=== PATIENT | female | born 1960 | race Caucasian/White ===

== ENCOUNTER 2020-02-10 12:21 | Emergency (ER) | payer MEDICAID ==
[~2020-02-10] VITALS: Ht 162.6 cm; Wt 59.1 kg
[2020-02-10] MEDS ORDERED: ondansetron/PF 4mg/2ml inj IV ONE (12:35)
[2020-02-10] MEDS ORDERED: normal saline 1000ML IV soln IV ONE (12:35)
[2020-02-10 13:13] LABS: EOSINOPHILS % (AUTO) 0.9 % (0-6); HEMATOCRIT 33.5 % (35.0-45.0); HEMOGLOBIN 11.2 g/dl (12.0-16.0); LYMPHOCYTES % (AUTO) 24.4 % (21-51); MEAN CORPUSCULAR HEMOGLOBIN 32.4 PG (27.0-31.0); MEAN CORPUSCULAR HGB CONC 33.4 g/dL (33.0-36.5); MEAN PLATELET VOLUME 8.6 FL (7.4-10.4); MONOCYTES # (AUTO) 0.5 X10'3 (0-0.9); MONOCYTES % (AUTO) 13.9 % (2-12); NEUTROPHILS # (AUTO) 2.3 X10'3 (1.8-7.7); NEUTROPHILS % (AUTO) 59.8 % (42-75); RED BLOOD COUNT 3.46 X10'6 (4.20-5.60); RED CELL DISTRIBUTION WIDTH 14.7 % (11.5-14.5); WHITE BLOOD COUNT 3.9 X10'3 (4.5-11.0)
[2020-02-10 13:26] LABS: PLATELET COUNT 30 X10'3 (140-440)
[2020-02-10 13:32] LABS: ALANINE AMINOTRANSFERASE 48 U/L (12-78); ALBUMIN 3.4 G/DL (3.4-5.0); ALBUMIN/GLOBULIN RATIO 0.7 (1.1-1.5); ALKALINE PHOSPHATASE 189 IU/L (46-116); ANION GAP 15 (8-16); ASPARTATE AMINO TRANSFERASE 161 U/L (10-37); BILIRUBIN,TOTAL 2.2 MG/DL (0.1-1.0); BLOOD UREA NITROGEN 10 MG/DL (7-18); BUN/CREATININE RATIO 14.5 (6.6-38.0); CALCIUM 8.6 MG/DL (8.5-10.1); CHLORIDE 95 MMOL/L (99-107); CREATININE 0.69 MG/DL (0.40-0.90); GLUCOSE 113 MG/DL (70-104); LIPASE 257 U/L (73-393); SODIUM 134 MMOL/L (135-145); TOTAL CARBON DIOXIDE 24.1 MMOL/L (24-32); TOTAL PROTEIN 8.1 G/DL (6.4-8.2); eGFR 87 ML/MIN
[2020-02-10 13:39] LABS: POTASSIUM 2.7 MMOL/L (3.5-5.1)
[2020-02-10] MEDS ORDERED: potassium Cl 20 mEq SR tablet PO STA (13:52)
[2020-02-10] MEDS ORDERED: potassium Cl 10 mEq/100mL bag IV ONE (13:55)
[2020-02-10] MEDS ORDERED: thiamine 100mg/ml 2ml inj. IV ONE (14:05)
[2020-02-10] MEDS ORDERED: folic acid 1mg/0.2ml inj IV ONE (14:05)
[2020-02-10 15:35] VITALS: BP 111/83
== END 2020-02-10 15:37 | disposition home or self-care (01) ==
LOC: EDBD 12:22 → ER 12:22
DX: F10.20 Alcohol dependence, uncomplicated (principal); R07.89 Other chest pain; E87.6 Hypokalemia; R10.10 Upper abdominal pain, unspecified; R42 Dizziness and giddiness; Z86.19 Personal history of other infectious and parasitic diseases; Y90.0 Blood alcohol level of less than 20 mg/100 ml
CPT/HCPCS: 36415; 71045; 74176; 80053; 82140; 83690; 85025; 85610; 86885; 86900; 86901; 93005; 96361; 96365; 96375; 99285; J2405; J3411; J3480; J3490; J7030

== ENCOUNTER 2020-05-06 20:13 | Emergency (ER) | payer MEDICAID ==
[~2020-05-06] VITALS: Ht 162.6 cm; Wt 61.1 kg
[2020-05-06 20:25] VITALS: BP 129/86
--- NOTE | 2020-05-06 21:40 | NUR ---
PT AWAITING ER PROVIDER. GIVEN SANDWICH AND JUICE. REMAINS IN T2 FOR CONTACT PRECAUTIONS FOR POSS SCABIES
[2020-05-06] MEDS ORDERED: diphenhydrAMINE 50 mg/ml inj IM ONE (21:55)
[2020-05-06] MEDS ORDERED: DIPH25CA83 PO (21:56)
== END 2020-05-06 22:08 | disposition home or self-care (01) ==
LOC: ER 20:13
DX: L29.9 Pruritus, unspecified (principal); F17.200 Nicotine dependence, unspecified, uncomplicated; Z86.19 Personal history of other infectious and parasitic diseases; Z72.89 Other problems related to lifestyle; Z79.899 Other long term (current) drug therapy
CPT/HCPCS: 96372; 99283; J1200